=== PATIENT | female | born 1985 | race Caucasian/White ===

== ENCOUNTER 2016-08-14 08:17 | Emergency (ER) | payer OTHER ==
[2016-08-14 08:26] VITALS: BP 111/73
--- NOTE | 2016-08-14 13:34 | UC ---
Chaz Wilson Auryana, scribed for Antonette Mondragon DO on 08/14/16 at 0902 . Bite Injury/Animal HPI - HPI Summary HPI Summary: 30 year old female presents with headache and diffuse body myalgia starting 4 days ago. Patient reports that she was bitten by a tick at the right groin 11 days ago - reports redness at the site of the bite. Since then, she has developed chills, nausea, neck stiffness, diffuse myalgia, KENNEDY (9/10), and reports that she's "not with it" - feels "dazed". She denies any fevers, cough , sore throat, or any eye discharge. She denies any significant PMHx. FHx is significant for cancer. SHx is not significant for tobacco, alcohol, or any recreational drugs. - History of Current Complaint Chief Complaint: UCGeneralIllness Stated Complaint: TICK BITE Time Seen by Provider: 08/14/16 09:05 Hx Obtained From: Patient Hx Last Menstrual Period: doesn't get-shots ?: No Severity Currently: Mild Severity Initially: Mild Pain Intensity: 9 - KENNEDY Pain Scale Used: 0-10 Numeric Onset/Duration: Gradual Onset, Lasting Days - 11 - symptoms 4 days ago, Still Present Type of Bite: Wild Animal - tick Has Animal Been Immunized?: N/A Aggravating Factor(s): Nothing Alleviating Factor(s): Nothing Associated Signs And Symptoms: Positive: Erythema - at the site of the bite Animal Available for Observation: No - Allergies/Home Medications Allergies/Adverse Reactions: Allergies Allergy/AdvReac Type Severity Reaction Status Date / Time No Known Allergies Allergy Verified 08/14/16 08:21 Home Medications: Home Medications Acetaminophen TAB* [Tylenol TAB*] 3 tab PO PRN 08/14/16 [History] PMH/Surg Hx/FS Hx/Imm Hx Previously Healthy: Yes Other History Of: Negative For: Anticoagulant Therapy - Surgical History Surgical History: Yes Surgery Procedure, Year, and Place: RIGHT KNEE - Family History Known Family History: Positive: Cardiac Disease, Other - depression, cancer - Social History Lives: With Family Alcohol Use: Occasionally Substance Use Type: None Smoking Status (MU): Never Smoked Tobacco Have You Smoked in the Last Year: No - Immunization History Most Recent Influenza Vaccination: 2015 Most Recent Tetanus Shot: 01/03/15 Most Recent Pneumonia Vaccination: NONE Review of Systems Constitutional: Chills, Other - reports "not with it" - "dazed" Skin: Negative Eyes: Negative ENT: Negative Respiratory: Negative Cardiovascular: Negative Gastrointestinal: Nausea Genitourinary: Negative Motor: Negative Neurovascular: Negative Musculoskeletal: Myalgia - diffuse, Other: - neck stiffness Neurological: Headache - 10/26 Psychological: Negative All Other Systems Reviewed And Are Negative: Yes Physical Exam Triage Information Reviewed: Yes Appearance: Well-Appearing, No Pain Distress, Well-Nourished Vital Signs: Initial Vital Signs Temp 98.1 F 08/14/16 08:21 Pulse 89 08/14/16 08:21 Resp 16 08/14/16 08:21 BP 111/73 08/14/16 08:21 Pulse Ox 100 08/14/16 08:21 Vital Signs Reviewed: Yes Eyes: Positive: Conjunctiva Clear. Negative: Discharge ENT: Positive: Hearing grossly normal. Negative: Muffled/hoarse voice Neck exam: Normal Neck: Positive: Supple Respiratory: Positive: Lungs clear, Normal breath sounds, No respiratory distress, No accessory muscle use Cardiovascular: Positive: RRR, No Murmur Abdomen Description: Positive: Nontender, Soft Musculoskeletal Exam: Normal Musculoskeletal: Positive: Strength Intact Neurological: Positive: Alert, Muscle Tone Normal, Other: - A&Ox3, CN II-XII INTACT, SENSORY MOTOR INTACT, REFLEXES INTACT, NO CEREBELLAR SIGNS, FACIAL SYMMETRY NML Psychological Exam: Normal Psychological: Positive: Age Appropriate Behavior Skin Exam: Normal, Other - warm, dry, and color normal Bite Injury Course/Dx - Differential Dx/Diagnosis Provider Diagnoses: lyme disease Discharge - Discharge Plan Condition: Stable Disposition: HOME Prescriptions: DOXYcycline CAP(*) [DOXYcycline 100MG CAP(*)] 100 mg PO BID #42 cap Patient Education Materials: Lyme Disease (ED) Referrals: Carmen [place] NP [Primary Care Provider] - (FOLLOW UP WITHIN 1 WEEK) Additional Instructions: DOXYCYCLINE: Doxycycline (Vibramycin, Doryx) is an antibiotic of the tetracycline family. This type of drug is useful for infections of the respiratory tract and genital tract, and is sometimes used for intestinal infections. Unlike most tetracyclines, doxycycline can be taken with food. It is longer acting, and (usually) less prone to side effects than regular tetracycline. Tetracycline antibiotics can stain immature teeth and SHOULD NOT BE TAKEN BY CHILDREN, NURSING MOTHERS, OR WOMEN. Tetracyclines can make you more prone to sunburn. Abdominal cramping, nausea, and diarrhea are occasional side effects. Women may experience vaginal yeast infections. Call the doctor at once if you develop hives, itching, shortness of breath , or lightheadedness. DISCUSSED, DOXY ALSO INCREASES YOUR RISK OF SUNBURN. COVER UP WHEN YOU GO OUTSIDE. ANYTIME YOU TAKE AN ANTIBIOTIC, IT IS IMPORTANT TO REPLENISH THE BODY'D SUPPLY OF "GOOD BACTERIA." YOU CAN GET GOOD BACTERIA FROM HIGH QUALITY CULTURED FOODS SUCH LOCAL YOGURT, SOUR KRAUT, RED JANY, NATURALLY FERMENTED PICKLES AND PROBIOTIC DRINKS. YOU CAN ALSO GET GOOD BACTERIA FROM A PROBIOTIC SUPPLEMENT. The documentation as recorded by the Chaz flores Auryana accurately reflects the service I personally performed and the decisions made by me, Antonette Mondragon DO.
== END 2016-08-14 09:29 | disposition home or self-care (01) ==
LOC: UCEAST 08:17
DX: A69.20 Lyme disease, unspecified (principal)
CPT/HCPCS: 99212; G0463